=== PATIENT | female | born 1955 | race Two or more races ===

== ENCOUNTER 2025-11-05 15:59 | Inpatient (IN) | payer MEDICARE, OTHER ==
[~2025-11-05] VITALS: Ht 162.6 cm; Wt 77.6 kg
[2025-11-05 17:03] LABS: CALCIUM, SERUM 8.6 mg/dL (8.5-10.1); CREATININE 0.7 mg/dL (0.6-1.3); SODIUM SERUM 138.0 mmol/L (136-145); UREA NITROGEN, BLOOD 32.0 mg/dL (7-18)
[2025-11-05 17:04] LABS: SERUM AMMONIA 10.0 umol/L (11-32)
[2025-11-05 17:08] LABS: PLATELET COUNT (AUTO) 184 K/uL (150-450); RED BLOOD CELL COUNT(AUTO) 3.56 MIL/uL (4.0-5.2); RED CELL DISTRIBUTION WIDTH 16.1 % (11.5-15.0); WHITE BLOOD COUNT (AUTO) 5.9 K/uL (4.3-11.0)
[2025-11-05 17:09] LABS: ASPARTATE AMINOTRANSFERASE 11.0 U/L (15-37); TOTAL PROTEIN, SERUM 6.8 g/dL (6.4-8.2)
[2025-11-05 17:10] LABS: INR 1.06 (0.91-1.10)
[2025-11-05] MEDS ORDERED: ESCI5TAB PO ×2 (17:48)
[2025-11-05] MEDS ORDERED: SENN8.6T19 PO (17:48)
[2025-11-05] MEDS ORDERED: MULT-213 PO (17:48)
[2025-11-05] MEDS ORDERED: METF-440 PO (17:48)
[2025-11-05] MEDS ORDERED: MAGN400O6 PO (17:48)
[2025-11-05] MEDS ORDERED: BENZ0.5T43 PO (17:48)
[2025-11-05] MEDS ORDERED: NA P133E RC (17:48)
[2025-11-05] MEDS ORDERED: AMLO-213 PO (17:48)
[2025-11-05] MEDS ORDERED: DIVA500T2 PO (17:48)
[2025-11-05] MEDS ORDERED: FENO54TA PO (17:48)
[2025-11-05] MEDS ORDERED: ECON30CR4 TP (17:48)
[2025-11-05] MEDS ORDERED: insulin glargine SQ (17:48)
[2025-11-05] MEDS ORDERED: FERR325T28 PO (17:48)
[2025-11-05] MEDS ORDERED: TRIA60LO8 TP (17:48)
[2025-11-05] MEDS ORDERED: DONE5TAB7 PO (17:48)
[2025-11-05] MEDS ORDERED: CHOL100062 PO (17:48)
[2025-11-05] MEDS ORDERED: INSU100V39 SQ (17:48)
[2025-11-05] MEDS ORDERED: APIX5TAB PO (17:48)
[2025-11-05] MEDS ORDERED: DIPH25CA83 PO (17:48)
[2025-11-05] MEDS ORDERED: LINA5TAB PO (17:48)
[2025-11-05] MEDS ORDERED: ACET325T53 PO (17:48)
[2025-11-05] MEDS ORDERED: DOCU100T2 PO (17:48)
[2025-11-05] MEDS ORDERED: GLUC1KIT IJ (17:48)
[2025-11-05] MEDS ORDERED: QUET25TA PO (17:48)
[2025-11-05] MEDS ORDERED: GABA-532 PO (17:48)
[2025-11-05] MEDS ORDERED: HALOPERIDOL LACTATE INJ 5 MG/ML VIAL ONE (17:55)
[2025-11-05] MEDS: IV NS 0.9% 1,000 ML BAG IV ONE (17:59)
[2025-11-05] MEDS: HALOPERIDOL LACTATE INJ 5 MG/ML VIAL IV ONE (17:59)
[2025-11-05] MEDS ORDERED: LEVOFLOXACIN 500 MG /D5W 100ML 100 ML IV ONE (18:00)
[2025-11-05 18:05] LABS: AMPHETAMINE, URINE NEGATIVE (NEGATIVE); BARBITURATE, URINE NEGATIVE (NEGATIVE); BENZODIAZEPINE, URINE NEGATIVE (NEGATIVE); CANNABINOID, URINE NEGATIVE (NEGATIVE); COCCAINE, URINE NEGATIVE (NEGATIVE); OPIATE, URINE NEGATIVE (NEGATIVE)
[2025-11-05] MEDS: LEVOFLOXACIN 500 MG /D5W 100ML 500 MG/100 ML PIGGYBACK IV ONE (18:10)
[2025-11-05 18:17] LABS: APPEARANCE,URINE TURBID (CLEAR)
[2025-11-05 18:20] LABS: SQUAMOUS EPITHELIAL CELL,UR Moderate /HPF (None Seen)
[2025-11-05 22:00] VITALS: BP 129/56; TEMP 97.5; O2SAT 100
[2025-11-06] VITALS (7 sets, daily range): BP systolic 110–141; BP diastolic 59–70; TEMP 97.9–98.4; O2SAT 96–98
[2025-11-06] MEDS ORDERED: MAGNESIUM HYDROXIDE 30 ML UDC PO PRN
[2025-11-06] MEDS ORDERED: MAG HYDROX/AL HYDROX/SIMETH 30 ML UDC PO PRN
[2025-11-06] MEDS ORDERED: ONDANSETRON HCL/PF 4 MG/2 ML VIAL IVP PRN
[2025-11-06] MEDS ORDERED: DEXTROSE 50%-WATER 50 ML DISP.SYRIN IV PRN
[2025-11-06] MEDS ORDERED: ACETAMINOPHEN 325 MG TABLET PO PRN
[2025-11-06] MEDS: QUETIAPINE FUMARATE 25 MG TABLET PO SCH (00:34)
[2025-11-06] MEDS: DONEPEZIL 5 MG TABLET PO SCH (00:34)
[2025-11-06] MEDS: INSULIN REGULAR, HUMAN 100 UNIT/ML 3 ML VIAL SQ PRN (00:42)
[2025-11-06] MEDS: BLOOD SUGAR DIAGNOSTIC 1 EACH STRIP IN SCH (00:43)
[2025-11-06] MEDS: IV NS 0.9% 1,000 ML IV PRN (00:45)
[2025-11-06 07:26] LABS: PLATELET COUNT (AUTO) 162 K/uL (150-450); RED BLOOD CELL COUNT(AUTO) 3.35 MIL/uL (4.0-5.2); RED CELL DISTRIBUTION WIDTH 15.5 % (11.5-15.0); WHITE BLOOD COUNT (AUTO) 5.9 K/uL (4.3-11.0)
[2025-11-06 07:49] LABS: CALCIUM, SERUM 8.5 mg/dL (8.5-10.1); CREATININE 0.7 mg/dL (0.6-1.3); PHOSPHORUS 3.4 mg/dL (2.5-4.9); SODIUM SERUM 140.0 mmol/L (136-145); UREA NITROGEN, BLOOD 29.0 mg/dL (7-18)
[2025-11-06] MEDS: SENNOSIDES 8.6 MG TABLET PO SCH (08:41)
[2025-11-06] MEDS: GABAPENTIN 100 MG CAPSULE PO SCH (08:44)
[2025-11-06] MEDS: BENZTROPINE MESYLATE (1 MG) 1 MG TABLET PO SCH (08:46)
[2025-11-06] MEDS: DIVALPROEX SODIUM 500 MG TABLET.DR PO SCH (08:47)
[2025-11-06] MEDS: DOCUSATE SODIUM 100 MG CAPSULE PO SCH (08:49)
[2025-11-06] MEDS: ESCITALOPRAM OXALATE (10 MG) 10 MG TABLET PO SCH (08:49)
[2025-11-06] MEDS: FERROUS SULFATE (325 MG) 325 MG/TAB TABLET PO SCH (08:50)
[2025-11-06] MEDS ORDERED: ENOXAPARIN SODIUM 40 MG/0.4 ML DISP.SYRIN SQ SCH (09:00)
[2025-11-06] MEDS: ECONAZOLE NITRATE CREAM 15 GM TUBE TP SCH (10:14)
[2025-11-06] MEDS: AMLODIPINE BESYLATE 10 MG TABLET PO SCH (10:14)
[2025-11-06] MEDS: MULTIVIT W/MINERALS 1 TAB TABLET PO SCH (10:14)
[2025-11-06] MEDS: APIXABAN 5 MG TABLET PO SCH (10:20)
[2025-11-06 10:26] LABS: EOSINOPHILS % (MANUAL) 1 % (0-4); LYMPHOCYTES % (MANUAL) 14 % (16-48); MONOCYTES % (MANUAL) 5 % (0-11.0); NEUTROPHILS % (MANUAL) 80 (42-76); PLATELET ESTIMATE ADEQUATE
[2025-11-06] MEDS: PERMETHRIN 5% CRM 60 GM TUBE TP ONE (14:15)
[2025-11-06] MEDS: LEVOFLOXACIN 500 MG /D5W 100ML 500 MG in PREMIX 1 EA IV SCH (21:58)
[2025-11-07 07:00] VITALS: BP 135/79; TEMP 98.8; O2SAT 97
[2025-11-07 16:00] VITALS: BP 123/89; TEMP 97.9; O2SAT 94
[2025-11-07 20:00] VITALS: BP 129/56; TEMP 97.9; O2SAT 95
[2025-11-08 07:00] VITALS: BP 116/72; TEMP 97.3; O2SAT 98
[2025-11-08 09:03] VITALS: BP 116/72
== END 2025-11-08 17:20 | DRG 689 ==
LOC: ER 16:30 → MED 20:41
PROVIDERS: ADMIT Nurse Practitioner Acute Care
DX: N39.0 Urinary tract infection, site not specified (principal); E43 Unspecified severe protein-calorie malnutrition; G93.41 Metabolic encephalopathy; F03.918 Unspecified dementia, unspecified severity, with other behavioral disturbance; E88.09 Other disorders of plasma-protein metabolism, not elsewhere classified; E11.51 Type 2 diabetes mellitus with diabetic peripheral angiopathy without gangrene; B96.89 Other specified bacterial agents as the cause of diseases classified elsewhere; N17.9 Acute kidney failure, unspecified; Z79.01 Long term (current) use of anticoagulants; J45.909 Unspecified asthma, uncomplicated; F25.9 Schizoaffective disorder, unspecified; F03.93 Unspecified dementia, unspecified severity, with mood disturbance; F31.9 Bipolar disorder, unspecified; Z88.6 Allergy status to analgesic agent; Z88.0 Allergy status to penicillin; Z79.84 Long term (current) use of oral hypoglycemic drugs; Z79.4 Long term (current) use of insulin; Z79.899 Other long term (current) drug therapy
CPT/HCPCS: 36415; 71045-TC; 80048-TC; 80076-TC; 81001; 82140-TC; 82962-TC; 83735-TC; 84100-TC; 84443-TC; 85025-TC; 85027-TC; 85730-TC; 87040-TC; 87081-TC; 87086-TC; 92526; 92611; 97110-TC; 97530-TC; 97535-TC; A4216; A4223; G0378; J1630; J1815; J1956; J7030